=== PATIENT | male | born 1970 | race Hispanic/Latino ===

== ENCOUNTER 2017-12-04 12:51 | Emergency (ER) | payer SELFPAY ==
[~2017-12-04] VITALS: Ht 175.3 cm; Wt 77.1 kg
[2017-12-04 13:29] LABS: STREPTOCOCCUS GRP A ANTIGEN NEGATIVE (NEGATIVE)
[2017-12-04 13:38] LABS: INFLUENZAE A&B ANTIGEN (RAPID) NEGATIVE (NEGATIVE)
--- NOTE | 2017-12-04 14:47 | Diagnostic Imaging Report ---
PROCEDURE: A single AP view of the chest. COMPARISON: None. INDICATIONS: CHILLS, COUGH FINDINGS: Lines/tubes: None. Lungs: The lungs are well inflated and clear. There is no evidence of pneumonia or pulmonary edema. Pleura: There is no pleural effusion or pneumothorax. Heart and mediastinum: The heart and the mediastinum are unremarkable. Bones: No acute bony abnormality. IMPRESSION: 1. No acute cardiopulmonary disease. Dictated by: Nicolás Grider M.D. on 12/04/2017 at 14:46 Electronically approved by: Nicolás Grider M.D. on 12/04/2017 at 14:46
[2017-12-04 15:13] VITALS: BP 140/98
== END 2017-12-04 15:23 | disposition home or self-care (01) ==
LOC: ER 12:51
DX: J02.9 Acute pharyngitis, unspecified (principal); J31.2 Chronic pharyngitis; J01.00 Acute maxillary sinusitis, unspecified; J01.10 Acute frontal sinusitis, unspecified
CPT/HCPCS: 71045; 83518; 87070; 87400; 99283